=== PATIENT | female | born 2005 | race Caucasian/White ===

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

== ENCOUNTER 2024-01-10 12:47 | Emergency (ER) | payer BC, SELFPAY ==
--- NOTE | 2024-01-10 13:12 | ED.HA ---
HPI - Headache General Chief Complaint: Head Injury Stated Complaint: concussion? Time Seen by Provider: 01/10/24 13:16 Mode of arrival: ambulatory Limitations: no limitations History of Present Illness HPI Narrative: 18-year-old female presents with concern for headache. Reports she was drinking vodka last night, she fell onto her knees and then onto her face on a concrete surface. Reports abrasions on her face. She reports she had an episode of vomiting this morning. She reports she does not have recollection of the night or the injury due to drinking. Her friends recall the events to her. Her friends stay she did not lose consciousness at the time. Reports she was quiet after she fell. MD elicited complaint: headache Related Data Home Medications Medication Instructions Recorded Confirmed methylphenidate HCl 27 mg mg PO 01/10/24 tablet,extended release 24 hr Allergies Allergy/AdvReac Type Severity Reaction Status Date / Time No Known Allergies Allergy Verified 01/10/24 13:13 Review of Systems Review of Systems: CONSTITUTIONAL: Denies malaise, chills, sweats, or fever. EYES: Denies visual changes ENT: Denies rhinorrhea RESPIRATORY: Denies cough or dyspnea. GASTROINTESTINAL: Reports mild nausea. Reports 1 episode of vomiting SKIN: Reports abrasions to the face MUSCULOSKELETAL: Denies musculoskeletal pain NEUROLOGIC: Denies numbness, weakness. Reports headache. All systems reviewed & are unremarkable except as noted in HPI and below PMFSH Past Medical History Medical History (Updated 01/10/24 @ 13:33 by Chloé Pabon NP) ADHD Social History Social History Smoking status: Never smoker Comments At time of signature, agree with nursing past medical, surgical, social and family history. There is no relevant family history pertinent to the presenting complaint Exam Narrative: GENERAL: Well-appearing, well-nourished, and in no acute distress. HEAD: Normocephalic, atraumatic. EYES: PERRLA, sclera clear, and EOMI. No nystagmus. ENT: Nares clear, turbinates pink, no rhinorrhea or epistaxis. Mucous membranes moist. NECK: Supple. CHEST: No respiratory distress. Clear to auscultation. No bony deformities, no asymmetry. Speaks in full sentences. HEART: Regular rate and rhythm. No murmur heard. EXTREMITIES: Normal range of motion. No edema. Normal strength and sensation. SKIN: Warm, dry, no visible rash. Superficial abrasions noted to the right forehead and around the right eye NEURO: Alert and oriented x3. No focal deficits. Cranial nerves II through XII grossly intact PSYCH: Normal mood and affect Course Course Emergency Course: Anticipatory guidance given. Patient agrees to follow-up as directed and is aware of reasons to seek care at the emergency department. Portions of this record may have been created with voice recognition software Level of Care: Express Care Visit Vital Signs Vital signs: Reviewed. MDM - Headache MDM Narrative Medical decision making narrative: CCHR score: Signs of open or depressed skull fracture: No Guzman sign/raccoon eyes: No 2 or more episodes of vomiting: No Age 65 years +: No Amnesia for events occurring 30 minutes prior to trauma: Unknown Dangerous mechanism of injury (pedestrian struck by motor vehicle, occupant ejected from motor vehicle, fall from >3 feet or >5 stairs): No Because of the patient's intoxicated state comprehensive evaluation is not possible. I advised the patient that I cannot rule out high risk of head injury/head bleed without a CT scan. Patient is refusing to go to the emergency room at this time. I advised her signs and symptoms to watch for and advised her to go to the emergency room if she notices any worsening of her condition Differential Diagnosis Differential diagnosis: Likely subarachnoid hemorrhage, headache and postconcussion syndrome Critical Care T
[2024-01-10 13:13] VITALS: BP 129/74; PULSE 82; RESP 16; TEMP 37.2; O2SAT 100
== END 2024-01-10 13:39 | disposition home or self-care (01) ==
PROVIDERS: Emergency Provider Nurse Practitioner
DX: S09.90XA Unspecified injury of head, initial encounter (principal); W19.XXXA Unspecified fall, initial encounter
CPT/HCPCS: 99213; G0463

== ENCOUNTER 2024-01-12 10:48 | Emergency (ER) | payer BC, SELFPAY ==
--- NOTE | ~2024-01-12 | CT_ITS ---
EXAMINATION: CT brain wo con DATE: 01/12/2024 12:34 INDICATION: Head injury. Loss of consciousness. TECHNIQUE: Computed tomography (CT) of the head was performed without intravenous contrast. The mA wa s adjusted according to patient size. Iterative reconstruction technique was employed. The dose-lengt h product was 529.67 mGy-cm. COMPARISON: None FINDINGS: There is no intracranial hemorrhage, acute infarction, or abnormal intracranial mass lesion . There is a dystrophic calcification in right frontal lobe. The ventricles are normal in size. The p aranasal sinuses are clear. The mastoid air cells are normal. IMPRESSION: 1. Normal brain. Reviewed, dictated and finalized at location A. IMPRESSION: 1. Normal brain.
--- NOTE | ~2024-01-12 | CT_ITS ---
EXAMINATION: CT facial & cervical spine wo DATE: 01/12/2024 12:34 INDICATION: Head injury. TECHNIQUE: Computed tomography (CT) of the maxillofacial region and cervical spine was performed with out intravenous contrast. Automated exposure control and iterative reconstruction technique were empl oyed. The dose-length product was 447.76 mGy-cm. COMPARISON: None FINDINGS: MAXILLOFACIAL CT: There is leftward deviation of the nasal septum. No fracture. There is minimal mucosal thickening in the paranasal sinuses. CERVICAL SPINE CT: There is mild kyphosis of cervical spine. Vertebral body heights and intervertebral disc heights are normal. At C7-T1, there is mild right facet joint osteoarthritis. No neural foraminal stenosis or katie tral canal stenosis. IMPRESSION: 1. No fracture. Reviewed, dictated and finalized at location A. IMPRESSION: 1. No fracture.
[2024-01-12 10:56] VITALS: BP 114/61; PULSE 64; RESP 15; TEMP 36.5; O2SAT 100
--- NOTE | 2024-01-12 12:27 | ED.HEATRA ---
HPI - Head Injury General Chief complaint: Head Injury Stated complaint: head injury Time Seen by Provider: 01/12/24 11:51 Source: patient Mode of arrival: ambulatory Limitations: no limitations History of Present Illness HPI Narrative: Pt is a 18-year-old female who presents to the ER after sustaining a fall on Friday night. She reports she had been drinking alcohol that night. Pt reports she fell to her knees, then fell forward and face planted. She endorses +LOC and reports she didn't wake back up until the next morning. Pt reports her friends told her she was bleeding from her nose. She endorses nausea, vomiting x 2, ocular pain with eye movement, and sensitivity to light. Pt denies shortness of breath, chest pain, or numbness/tingling in her extremities. Related Data Home Medications Medication Instructions Recorded Confirmed methylphenidate HCl 27 mg mg PO 01/10/24 tablet,extended release 24 hr Allergies Allergy/AdvReac Type Severity Reaction Status Date / Time No Known Allergies Allergy Verified 01/12/24 10:59 [facility] Past Medical History Medical History (Updated 01/12/24 @ 14:42 by Ida Hauser APRN) ADHD Social History Social History Smoking status: Never smoker Course Vital Signs Vital signs: Vital Signs Temperature 36.5 C 01/12/24 10:56 Pulse Rate 64 01/12/24 10:56 Respiratory Rate 15 01/12/24 10:56 Blood Pressure 114/61 01/12/24 10:56 Pulse Oximetry 100 01/12/24 10:56 Oxygen Delivery Room Air 01/12/24 10:56 Temperature 36.5 C 01/12/24 10:56 Pulse Rate 64 01/12/24 10:56 Respiratory Rate 15 01/12/24 10:56 Blood Pressure 114/61 01/12/24 10:56 Pulse Oximetry 100 01/12/24 10:56 Oxygen Delivery Room Air 01/12/24 10:56 MDM - Head Injury MDM Narrative Medical decision making narrative: Pt is a 18-year-old female who presents to the ER after sustaining a fall on Friday night. She reports she had been drinking alcohol that night. Pt reports she fell to her knees, then fell forward and face planted. She endorses +LOC and reports she didn't wake back up until the next morning. Pt reports her friends told her she was bleeding from her nose. She endorses nausea, vomiting x 2, ocular pain with eye movement, and sensitivity to light. Pt denies shortness of breath, chest pain, or numbness/tingling in her extremities. Upon examination, pt has healing superficial wounds in multiple places on her face. The rest of her exam is unremarkable. Neuro exam is WNL. CT head and CT facial bones/cervical/spine were WNL. CT spine results endorsed mild kyphosis of cervical spine. Vertebral body heights and intervertebral disc heights are normal. At C7-T1, there is mild right facet joint osteoarthritis. No neural foraminal stenosis or central canal stenosis. CT head results reported no intracranial hemorrhage, acute infarction, or abnormal intracranial mass lesion. There is a dystrophic calcification in right frontal lobe. The ventricles are normal in size. The paranasal sinuses are clear. The mastoid air cells are normal. LETTER SORTING MACHINE OPERATOR explained results of CT scans to pt. Pt verbalized understanding. Pt advised to use caution when she drinks alcohol. Pt may take Tylenol as needed for a headache. Reasons for returning to the ER were discussed and pt verbalized understanding. Differential Diagnosis Differential diagnosis: Likely closed head injury, subarachnoid hematoma, postconcussion syndrome and subdural hematoma Lab Data Attestation: I reviewed the patient's lab results. Imaging Data Attestation: I personally reviewed and interpreted this imaging study as follows: Radiologist's impression: Impressions Head CT 01/12/24 12:36 IMPRESSION: 1. Normal brain. Head/Cervical Spine/Facial Bones CT 01/12/24 12:37 IMPRESSION: 1. No fracture. Discharge Plan Discharge Clinical Impression: Postconcussion syndrome Patient Disposition: Home, Self-Care Condition: Stable Instructions: Antibiotic Form, Concussion (ED), Post Concussion Syndrome (ED) Additional Instructions: Please take caution when you drink alcohol. Make sure you and your friends are seeking additional help when someone loses consciousness or hits their head while drinking alcohol. You may take Tylenol as needed for a headache. If you develop the worst headache of your life, experience severe dizziness, have altered mental status, or continue to vomit, please return to the ER. Prescriptions: No Action methylphenidate HCl 27 mg tablet extended release 24hr PO Follow-up/Referrals: Chidi Lehman MD [Physician] - (Primary Care) UNKNOWN,DOCTOR [Primary Care Provider] - Stand Alone Forms: Work/School Release IP Time of Disposition: 14:41
== END 2024-01-12 14:45 | disposition home or self-care (01) ==
PROVIDERS: Emergency Provider Registered Nurse
DX: S09.90XA Unspecified injury of head, initial encounter (principal); F07.81 Postconcussional syndrome; F90.9 Attention-deficit hyperactivity disorder, unspecified type; W18.30XA Fall on same level, unspecified, initial encounter
CPT/HCPCS: 70450; 70486; 72125; 99284

== ENCOUNTER 2024-03-08 08:31 | Emergency (ER) | payer BC, SELFPAY ==
[2024-03-08 08:37] VITALS: BP 118/53; PULSE 76; RESP 16; TEMP 36.5; O2SAT 100
--- NOTE | 2024-03-08 08:41 | ED.URI ---
HPI - URI/Sore Throat General Chief Complaint: Upper Respiratory Infection Stated Complaint: sore throat / body aches Time Seen by Provider: 03/08/24 08:56 Source: patient, RN notes reviewed and old records reviewed Mode of arrival: ambulatory Limitations: no limitations History of Present Illness HPI Narrative: patient presents with complaints of 3-4 days of runny nose, sore throat, cough. She denies any fever, chills, sweats. She has not been taking anything for her symptoms. She is not in any distress. She voices no concerns or complaints at this time. Related Data Home Medications Medication Instructions Recorded Confirmed methylphenidate HCl 27 mg 27 mg PO DAILY 01/10/24 tablet,extended release 24 hr Allergies Allergy/AdvReac Type Severity Reaction Status Date / Time No Known Allergies Allergy Verified 03/08/24 08:46 Review of Systems Review of Systems: All systems reviewed & are unremarkable except as noted in HPI and below Constitutional: Constitutional: Reports no additional constitutional complaints ENT: Reports system reviewed and no additional complaints, except as documented, Reports as per HPI, Reports nasal congestion, Reports nasal discharge, Reports post nasal drip and Reports sore throat Cardiovascular: Cardiovascular: Reports no additional cardiovascular complaints Respiratory: Respiratory: Reports no additional respiratory complaints and Reports cough Gastrointestinal: Gastrointestinal: Reports no additional gastrointestinal complaints [facility] Past Medical History Medical History (Updated 03/08/24 @ 09:11 by Marycarmen Santana APRN) ADHD Social History Social History Smoking status: Never smoker Comments At the time of my signature, I reviewed and agree with the nursing past medical, surgical, social, and family history. There is no relevant family history pertinent to the patient complaint. Exam Const: General: cooperative, no acute distress, alert and awake Orientation/consciousness: oriented to person, oriented to place and oriented to time HENMT: Head: normal to inspection Ears: TM's normal bilaterally Face/Nose/Sinus: Nasal discharge present clear Mouth: Yes moist mucous membranes Throat: posterior oropharynx abnormal erythema and postnasal drainage Resp: Effort & Inspection: normal respiratory effort and able to speak in complete sentences Auscultation: clear to auscultation bilaterally, no crackles, no rales, no rhonchi and no wheezes Cardio: Palpation: normal PMI Rate: regular rate Rhythm: regular rhythm Heart sounds: S1 normal heart sound present and S2 normal heart sound present Neuro: General: oriented to person, oriented to place and oriented to time Cranial nerves: Yes CN's II-XII intact bilaterally Psych: Appearance: grossly normal Thought process: Normal thought process present Insight: Good insight present (Psych) Judgement: Good judgement present (Psych) Course Course Level of Care: Express Care Visit Vital Signs Vital signs: Reviewed MDM - URI/Sore Throat MDM Narrative Medical decision making narrative: Patient in no distress, nontoxic appearing. Negative COVID, negative flu, negative strep. Culture pending. Patient with URI, supportive care discussed. Follow with primary care provider. Emergency department for new or worse symptoms. Discharge instructions reviewed with patient, as well as provided in writing per nursing staff. The instructions also include specific and strict return/GO TO THE ER as well as f/u information. All questions have been answered, and the patient deny any further questions with discharge and discharge plan. Some parts of this dictation were generated by voice recognition software and may contain typographical and/or grammatical inaccuracies. Differential Diagnosis Differential diagnosis: Likely upper respiratory infection, otitis media, viral infectio
[2024-03-08 09:05] LABS: EDCOVIDSCREEN Negative (Negative); EDINFLUASCREEN Negative (Negative); EDINFLUBSCREEN Negative (Negative); EDSTREPNEGPOS1 Negative (Negative)
== END 2024-03-08 09:16 | disposition home or self-care (01) ==
PROVIDERS: Emergency Provider Nurse Practitioner Family; PCP Pediatrics
DX: J06.9 Acute upper respiratory infection, unspecified (principal); Z20.822 Contact with and (suspected) exposure to COVID-19
CPT/HCPCS: 87081; 87426; 87804; 87880; 99213; G0463

== ENCOUNTER 2024-09-30 12:48 | Emergency (ER) | payer BC, SELFPAY ==
--- NOTE | 2024-09-30 12:50 | ED.URI ---
HPI - URI/Sore Throat General Chief Complaint: Upper Respiratory Infection Stated Complaint: Flu Like Time Seen by Provider: 09/30/24 12:50 Source: patient Mode of arrival: ambulatory Limitations: no limitations History of Present Illness HPI Narrative: Tatum is a 18-year-old female patient presenting to the clinic today with complaints of dental infection, fever, nasal congestion, sore throat, and body aches. She reports symptoms started about 3-4 days ago. Temperature was a 100? F in the clinic today and heart rates 120s. She denies any shortness of breath or chest pain. Does report pus coming out of her bottom incisor teeth/gums. Last menstrual period was last month. Denies any concern for . MD elicited complaint: sore throat and nasal congestion Related Data Home Medications ?Medication ?Instructions ?Recorded ?Confirmed ?Last Taken ?Type methylphenidate HCl 27 mg 27 mg PO DAILY 01/10/24 Unknown History tablet,extended release 24 hr Allergies Allergy/AdvReac Type Severity Reaction Status Date / Time No Known Allergies Allergy Verified 09/30/24 12:58 Review of Systems Review of Systems: Pertinent positives per HPI. Patient denies any fever, chills, rash, headache, visual changes, dizziness, cough, shortness of breath, chest pain, palpitations, nausea, vomiting, diarrhea, constipation, abdominal pain, or any urinary issues. PMFSH Past Medical History Medical History (Updated 09/30/24 @ 13:01 by Erlin Barry APRN) ADHD Social History Social History Smoking status: Never smoker Comments At the time of my signature, I reviewed and agree with the nursing past medical, surgical, social, and family history. There is no relevant family history pertinent to the patient complaint. Exam Narrative: General: Well-developed, well nourished, in no apparent distress Head: Normocephalic, atraumatic Eyes: Pupils equally round and reactive to light bilaterally, EOM intact, sclera and conjunctive clear, no discharge, lids normal Ears: TMs intact and clear, ear canals clear, no drainage, grossly hearing normal. Nose: Nares patent, clear nasal discharge, mild inflammation, no sinus tenderness. Mouth: Oral pharynx without lesions or masses, poor dentition, lower mid dental/gingival infection, MMM. Neck: Supple, trachea midline, no enlargement of anterior or posterior cervical nodes, no thyroid masses or goiter palpable. Cardio: Regular rate and rhythm, s1 and s2 normal, no murmur appreciated. Resp: Clear to auscultation bilaterally, no rhonchi, rales, wheezing or rubs Course Course Emergency Course: Portions of this record may have been created with voice recognition software. Level of Care: Express Care Visit Vital Signs Vital signs: Vital Signs Temperature 37.7 C H 09/30/24 12:54 Pulse Rate 121 H 09/30/24 12:54 Respiratory Rate 18 09/30/24 12:54 Blood Pressure 107/70 09/30/24 12:54 Pulse Oximetry 100 09/30/24 12:54 Oxygen Delivery Room Air 09/30/24 12:54 Temperature 37.7 C H 09/30/24 12:54 Pulse Rate 121 H 09/30/24 12:54 Respiratory Rate 18 09/30/24 12:54 Blood Pressure 107/70 09/30/24 12:54 Pulse Oximetry 100 09/30/24 12:54 Oxygen Delivery Room Air 09/30/24 12:54 Vital signs reviewed MDM - URI/Sore Throat MDM Narrative Medical decision making narrative: At the time of visit patient is resting comfortably on the exam table. Patient appears to be nontoxic. Plan: I suspect patient has URI with pharyngitis and dental infection. Prescription for amoxicillin was sent to the pharmacy. Patient was instructed to follow-up with her dentist as soon as possible. Supportive measures were discussed with the patient and they voiced understanding discharge instructions and agrees to treatment plan. Return precautions reviewed Differential Diagnosis Differential diagnosis: Likely upper respiratory infection, otitis media, sinusitis, viral infection, bronchitis, influenza, pharyngitis and other (COVID) Discharge Plan Discharge Clinical Impression: Dental infection Pharyngitis Qualifiers: Pharyngitis/tonsillitis etiology: unspecified etiology Qualified Code(s): J02.9 - Acute pharyngitis, unspecified URI (upper respiratory infection) Qualifiers: URI type: unspecified URI Qualified Code(s): J06.9 - Acute upper respiratory infection, unspecified Patient Disposition: Home Condition: Stable Instructions: Antibiotic Form, Pharyngitis (ED), Cold Symptoms (ED), Toothache (ED) Additional Instructions: Take prescription medications only as prescribed-amoxicillin May take DayQuil/NyQuil for cold/flu symptoms Increase fluids and stay well hydrated Tylenol/motrin for pain/fever Flonase and OTC antihistamines as directed Vicks vapor rub to open sinuses Sinus rinses for congestion Cepacol spray, cough drops, throat lozenges, warm tea with honey/lemon, gargle salt water to soothe throat BRAT diet for diarrhea Clear liquids x 24 hours then advance as tolerated for nausea/vomiting Go to the ED if you develop a worsening in your condition- high fever not controlled by Tylenol or Motrin, dehydration, weakness, lethargy, shortness of breath, or chest pain. Follow up with your PCP in 3-5 days if symptoms persist. Follow-up with your dentist as soon as possible Patient Language: Swazi Prescriptions: New amoxicillin 875 mg tablet 875 mg PO Q12H 10 Days Qty: 20 0RF No Action methylphenidate HCl 27 mg tablet extended release 24hr 27 mg PO DAILY Follow-up/Referrals: PHYSICIAN,AUTOMATIC SHIRRING MACHINE OPERATOR [Primary Care Provider] - Time of Disposition: 13:00 Quality NIHSS Nursing Documentation ED NIHSS nursing documentation: reviewed/agree
--- OUTSIDE RECORDS SUMMARY | 2024-09-30 12:51 | XMS_ITS | Clinical Summary ---
Author Organization [facility] Address [address] [place] [id number] Care Team Providers Care Talent Acquisition Operations Manager Name Role Phone None, Provider MD Primary Care Provider Unavaila ble Allergies No known active allergies Active Problems No known active problems Social History Tobacco Use Types Packs/Day Years Used Date Smoking Tobacco: Never Smokeless Tobacco: Never Comments No Sex and Gender Information Value Date Recorded Sex Assigned at Not on file Legal Sex Female 7:17 PM CDT Gender Identity Not on file Sexual Orientation Not on file Last Filed Vital Signs Vital Sign Reading Time Taken Comments Blood Pressure 102/70 11/16/2020 10:07 AM CDT Pulse 92 11/16/2020 10:07 AM CDT Temperature 36.9 C (98.5 F) 11/16/2020 10:07 AM CDT Respiratory Rate - - Oxygen Saturation 99% 11/16/2020 10:07 AM CDT Inhaled Oxygen Concentration - - Weight 76.7 kg (169 lb) 11/16/2020 10:07 AM CDT Height 172 cm (5' 7.72 ) 11/16/2020 10:07 AM CDT Body Mass Index 25.91 11/16/2020 10:07 AM CDT Body Mass Index Percentile 89.45% 11/16/2020 10: 07 AM CDT Growth Chart: [facility] (Girls, 2- 20 Years) Plan of Treatment Health Maintenance Due Date Last Done Comments Annual Physical 11/14/2007 HPV Vaccines (1 - 3-dose series) 11/14/2019 Meningococcal B Vaccine (1 o f 2 - Standard) 2020 Hepatitis C 2022 DTaP, Tdap and Td Vaccines ( 1 - Tdap) 11/14/2023 Hepatitis B Vaccines (1 of 3 - 19+ 3-dose series) 11/14/2023 COVID-19 Vaccine ( - 2023-2 5 season) 2024 Meningococcal Vaccine Aged Out No simon alison eligible based on patient's age to complete this topic Pneumococcal Vaccine: Pediat rics (0 to 5 Years) and At-Risk Patients (6 to 49 Years) Aged Out No longer eligible b ased on patient's age to complete this topic RSV Immunizations Under 20 Months Aged Out No longer eligible based on patient's age to complete this topic Insurance [facility] Care Teams Talent Acquisition Operations Manager Relationship Specialty Start Date End Date None, Provider, PCP - General 03/15/20
--- OUTSIDE RECORDS SUMMARY | 2024-09-30 12:51 | XMS_ITS | Data Portability ---
Author Organization [facility] [place] Address [address] [place] [address] Care Team Providers Care Community Relations Coordinator Name Role Phone MARISSA SCOTT Primary Care Provider [phone] Assessment Encounter Date Assessment Date Assessment LastModified by Organization Details LastModified Time 09/22/2020 09/22/2020 Has not had HPV vaccine- discussed and encouraged Recommended CBC, TSH, PCOS labs. PT declines due to fear of needles. Discussed PCOS briefly. If periods still irregular off OCP in a few years, should do labs then Discussed expectant mgt vs OCP. Pt desires OCP. Discussed the usage, side effects, risks, and benefits of OCP use. Questions answered. Prescription given for microgestin. She will start OCP with next menses and follow up for a med check in 4 mos. If menses not starting in one month, will call for provera. [email or web address] Not available 09/22/2020 15:11:50 01/19/2021 01/19/2021 Doing well on OCP Prescription refilled Questions answered discussed and reassured re amenorrhea with OCP use. FU for WWE in September [email or web address] Not available 01/19/2021 16:05:00 08/26/2023 08/26/2023 Annual gynecological exam performed. Patient will come back in a year unless there are new symptoms. [email or web address] Not available 08/26/2023 15:58:12 Plan of Treatment Reminders Order Date Submit Date Provider Last Modified By Organization Details Last Modified Time Details Appointments None recorded. Lab None recorded. Referral None recorded. Procedures None recorded. Surgeries None recorded. Imaging None recorded. Medication Orders Blisovi Fe 06/14 (28) 1 mg-20 mcg (21)/75 mg (7) tablet 2023 024 [facility] #[id number], [address], [place], [id number], 4 16:47:11 Aurovela Fe 1-20 (28) 1 mg-20 mcg (21)/75 mg (7) tablet 2020 021 [facility] #10896, [address], [place], [id number], 1 16:05:09 Microgestin FE 1/20 (28) 1 mg-20 mcg (21)/75 mg (7) tablet 2020 021 [facility] #81234, [address], [place], [id number], 1 15:09:07 Patient TargetsNo targets recorded. Patient InstructionsNo instructions recorded. Reason for Referral None Reported. Medical Equipment None Reported. Allergies No known drug allergies Medications Name Sig Start Date Stop Date Status Note LastModified by Organization Details LastModified Time methylphenid ate ER 54 mg tablet,exten ded release 24 hr TK 1 T PO IN THE MORNING active Not Available Not Available No t Available methylphenid ate ER 36 mg tablet,exten ded release 24 hr TAKE 1 TABLET BY MOUTH IN THE MORNING 08/24 completed Not Available Not Available Not Available Blisovi Fe 1/20 (28) 1 mg-20 mcg (21)/75 mg (7) tablet TAKE 1 TABLET BY MOUTH EVERY DAY active Not Available Not Available No t Available Vitals Date Recorded Body height Body mass index (BMI) [Percentile] Per age and sex Body mass index (BMI) Body weight Systolic blood pressure Diastolic blood pressure Provider Name and Address Organization Details Last Updated DateTime 1 165.1 cm 94 % 28.3 kg/m2 01363.7 g 115 mm[Hg] 69 mm[Hg] Thuy Trinidad [facility] 1 14:25:23 Date Recorded Body weight Body mass index (BMI) [Percentile] Per age and sex Body mass index (BMI) Body height Systolic blood pressure Diastolic blood pressure Provider Name and Address Organization Details Last Updated DateTime 1 02039.5 2 g 94 % 28 kg/m2 165.1 cm 125 mm[Hg] 80 mm[Hg] Thuy Trinidad [facility] 1 15:52:54 Date Recorded Body height Body mass index (BMI) [Percentile] Per age and sex Body mass index (BMI) Body weight Systolic blood pressure Diastolic blood pressure Provider Name and Address Organization Details Last Updated DateTime 4 165.1 cm 91 % 28 kg/m2 71219.5 2 g 102 mm[Hg] 77 mm[Hg] Sonya Max [facility] 4 15:31:44 Social History Question Answer Notes LastModified by Organizat ion Details LastModified Time Do You Have An Advance Directive? No Information n ot available 08/25/2023 What Is Your Level Of Alcohol Consumption? None Information not available 08/26/2023 Are You Blind Or Do You Have Difficulty Seeing? No Information not available 08/25/2023 What Is Your Level Of Caffeine Consumption? Moderate Information not available 08/25/2023 How Much Tobacco Do You Chew? None Information not available 08/26/2023 In The 14 Days Before Symptom Onset, Have You Had Close Contact With A Laboratory-confirme d COVID-19 While That Case Was Ill? No Information n ot available 08/25/2023 In The 14 Days Before Symptom Onset, Have You Had Close Contact With A Person Who Is Under Investigation For COVID-19 While That Person Was Ill? No Information not available 08/25/2023 Have You Been To An Area Known To Be High Risk For COVID-19? No Information not available 08/25/2023 Are You Deaf Or Do You Have Serious Difficulty Hearing? No Information not available 08/25/2023 What Type Of Diet Are You Following? REGULAR Information n ot available 08/25/2023 What Is The Highest Grade Or Level Of School You Have Completed Or The Highest Degree You Have Received? [id number] Information not available 08/26/2023 What Is Your Occupation? Student Information not available 08/25/2023 Are There Any Guns Present In Your Home? No Information not available 08/25/2023 Do You Use Your Seat Belt Or Car Seat Routinely? Yes Information not available 08/25/2023 Do You Have Smoke And Carbon Monoxide Detectors In Your Home? Yes Information not available 08/25/2023 How Much Tobacco Do You Smoke? No Information not available 08/26/2023 Do You Feel Stressed (tense, Restless, Nervous, Or Anxious, Or Unable To Sleep At Night)? [id number] Information not available 08/25/2023 Do You Use Any Illicit Or Recreational Drugs? No Information not available 08/25/2023 Do You Use Sunscreen Routinely? Yes Information not available 08/25/2023 Have You Used IV Drugs? No Information not available 08/25/2023 Sex: Unknown Functional Status Question Answer Note LastModified by Organizat ion Details LastModified Time Are you able to walk? YESWOREST Information not available 08/25/2023 What is your exercise level? Occasional Information not available 08/25/2023 Mental Status None recorded. Family History Relationship Description Onset Age of this Age Resolved Age Notes LastModified by Organization Details LastModified Time Paternal Grandfather Carcinoma in situ of colon [email or web address] Not available 2020 14:25:54 Maternal Grandmother Carcinoma in situ of ovary [email or web address] Not available 2020 14:26:18 Maternal Grandfather Carcinoma of prostate [email or web address] Not available 2020 14:26:34 Medical History Condition Response Allergies (Food, seasonal, environmental ) N Other N Breast Cancer N Drug/Latex Allergies/Reactions N Blood Transfusion N Dermatologic Disorders N Lung Disease N Defects or Inherited Disease N Breast Problem N Gestational Diabetes N Hematologic disorders N Anesthesia Complications N History of STI N Deep Vein Thrombosis N Polycystic ovary syndrome N Anxiety Disorder N Autoimmune disease N Arthritis N Infertility N Polyps N Acid Reflux (GERD) N History of abnormal pap N Cancer N Stroke N Varicosities N Neurologic/Epilepsy N Endometriosis N High Cholesterol N Headaches N Fibromyalgia N Kidney Disease N Heart Problems N Kidney or Bladder Problems N Thyroid Problems N GI Problems N Eating Disorder N Anemia N Art (IVF or FET) N Psychiatric Illness N Ovarian Cancer N Diabetes N Pulmonary (TB, Asthma) N Hepatitis/Liver Disease N No Past Medical History N Eczema N Urinary Tract Infection N Abuse/Domestic Violence N Asthma N Trauma/Violence N Depression/ depression N Heart Disease N Pre-Eclampsia N Hypertension N Osteoporosis N Thrombophilias N Gynecological History Statement/Question Response Date of LMP Frequency of Cycle (Q days) 7 Sexually Active? N On BCP's at Conception? Y N STIs/STDs N Age of first menstrual cycle 11 HPV Vaccine Y Sexual Problems? N Current Control Method BCPs N Obstetrics History GPAL:G 0 P 0 0 0 0 Past Encounters Encounter ID Performer Location Encounter Start Date Encounter Closed Date Diagnosis/Indication Diagnosis SNOMED-CT Code Diagnosis ICD10 Code Diagnosis Note [id number] Concetta Wise MD [place] [address],[facility] [place] [address] 09/22/2020 14:17:11 09/22/2020 15:16:12 Menometrorrhagia 829114881 N92.1 Vaccination not done 088 2558327 9108 Z28.9 Overweight in childhood 255513859 Z68.53 Initial pr escription of oral contraception done 3942096843 94592 Z30.011 [id number] Concetta Wise MD [place] [address] [address] 01/19/2021 15:46:52 01/21/2021 22:54:59 Menometrorrhagia 265651583 N92.1 Surveillan ce of oral contraception 778373726 Z30.41 [id number] JOSEFINA Hargrove [place] [address] [address] 08/26/2023 15:26:15 08/26/2023 16:03:30 Gynecologic examination 20452204 Z01.419 WWEdecline d STI screenpap at [address] [place] [address] ed annual exam with PCPRTC in 1 yr or sooner if needed Take Calcium with Vitamin D daily if not receiving in daily diet. It is strongly advised to have an annual flu shot and up can obtain at most pharmacies . If you have not had a TDap shot in the last 10 years you should obtain one as well. Discussed with patient & provided with informatio n regarding Gardisil vaccine to prevent the 4 strains for HPV that cause cervical cancer. Encourage safe sexual practices, to use condoms and limit partners if not already in a monogamous relationsh ip. Do monthly self breast exams. BRCA testing is now available for patients with strong genetic history of female cancer. If interested contact the office. Engage in regular exercise. Avoid tobacco, illicit drugs, and alcohol. This lifestyle behavior pattern will lead to less health conditions and longer life span. If BMI greater than 25 dietary consult advised. Pap smear is not recommende d prior to the age of 21. If you have any concerns, pelvic, or vaginal problems we can discuss testing. Patient received above instructio ns, and questions have been answered. If you have any questions please call or respond to this email. Patient was made aware of the patient portal and may obtain a paper copy of today's plan if desired. [facility] 787119239 Z30.9 desires to restart OCPrefills sent x 12 monthsr/b/ a reviewed Surveillan ce of oral contraception 184411899 Z30.41 Health Concerns Section Related Observation LastModified by Organization Detai ls LastModified Time None Recorded Concern Status LastModified by Organization Details LastModified Time None Recorded Advance Directives Directive N: Payers Encounter Date Sequence Insurance Name Policy Number Policy Faria Covered Member ID Faria Member ID Guarantor Name 09/22/2020 1 [place] 112 Valerio Sam [id number] Valerio Sam 01/19/2021 1 [place] 112 Valerio Sam [id number] Valerio Sam 08/26/2023 1 [facility] 112 Valerio Sam [id number] Valerio Sam Notes Date Note Type Note Provider Name and Address Organization Details Recorded Time 09/22/2020 text/html Patient is a 14y o G0 who presents for irregular periods. She has never been sexually active. menarche age 12, not quite 2 years ago. Always irregular from 2 weeks to 4 mos apart. Several times longer than 10 days. In jun of this year bled for 3 weeks straight, then off a week, then bled again. Concerns: HPV vaccine: no, afraid of vaccines Depression: denies, has some anxiety Domestic violence:denies exercise:yes Concetta Wise MD [address], [place], [address], [facility] 09/22/2020 15:12:09 01/19/2021 text/html Pt is a 15yo G0 who presents for follow up OCP start in September for menometrorrhagia.. She reports no side effects and doing well except had a period the first month and not since. Some missed pills, but getting better. Declined labs. Concetta Wise MD [address], [place], [address], [facility] 01/19/2021 16:05:13 08/26/2023 text/html Annual GYNReport ed bypatient.Menstrual cycle:Normal menses Urinary symptoms:No hematuria; No incontinence Vulva:No genital lesion Vagina:Normal vaginal discharge Breast:No breast pain; No breast lump; No nipple discharge Current Contraception:Satisf ied with current contraception; Oral contraceptives Sexual complaints:No sexual complaints; No pain during intercourse; Normal libido Menopausal Symptoms:No menopausal symptoms; Normal vaginal lubrication Psychological symptoms:No depression; No anxiety; No PMDD Preventive measures:Encourage self breast examination; Encourage regular exercise; Encourage no tobacco use; Encourage regular mammograms starting age 40Notes:17yo [id number] OCP in November, ran out of refillswants to restartdenies h/o DVT/PE, HTN, Stroke/IA, cancer, liver disease, or migraine with aura JOSEFINA Hargrove [address], [place], [address], [facility] 08/26/2023 16:00:50 OBGyn Episode No OBEpisode recorded.
--- OUTSIDE RECORDS SUMMARY | 2024-09-30 12:51 | XMS_ITS | Encounter Summary ---
Author Organization [facility] Address [address] [place] [address] Care Team Providers Care Child Welfare Manager Name Role Phone None, Provider Primary Care Provider Lindy powell Encounter Details Date Type Department Care Team (Late st Contact Info) Description 11/16/2020 [employer] [facility] [employer] Message Enc [facility] [address] [place] [address] Mya Carver, PREMA [address] [place] [address] Visit Follow Up Social History Tobacco Use Types Packs/Day Years Used Date Smoking Tobacco: Never Smokeless Tobacco: Never Comments No Sex and Gender Information Value Date Recorded Sex Assigned at Not on file Legal Sex Female 7:17 PM CDT Gender Identity Not on file Sexual Orientation Not on file COVID-19 Exposure Response Date Recorded In the last month, have you been in contact with someone who was confirmed or suspected to have Coronavirus / COVID-19? No / Unsure 11/16/2020 9:36 AM CDT documented as of this encounter Plan of Treatment Not on file documented as of this encounter Visit Diagnoses Not on filedocumented in this encounter Care Teams Child Welfare Manager Relationship Specialty Start Date End Date None, Provider, PCP - General 03/15/20 documented as of this encounter
[2024-09-30 12:54] VITALS: BP 107/70; PULSE 121; RESP 18; TEMP 37.7; O2SAT 100
== END 2024-09-30 13:10 | disposition home or self-care (01) ==
PROVIDERS: Emergency Provider Nurse Practitioner Family
DX: K04.7 Periapical abscess without sinus (principal); J02.9 Acute pharyngitis, unspecified; J06.9 Acute upper respiratory infection, unspecified
CPT/HCPCS: 99213; G0463

== ENCOUNTER 2024-10-02 07:36 | Emergency (ER) | payer BC, SELFPAY ==
--- OUTSIDE RECORDS SUMMARY | 2024-10-02 07:39 | XMS_ITS | Data Portability ---
Author Organization [facility] [place] Address [address] [place] [address] Care Team Providers Care Dot Net Developer Name Role Phone MARISSA SCOTT Primary Care Provider Assessment Encounter Date Assessment Date Assessment LastModified [...] in one month, will call for provera. [email or web address] Not available 09/22/2020 15:11:50 01/19/2021 01/19/2021 Doing well on OCP Prescription refilled Questions answered discussed and reassured re amenorrhea with OCP use. FU for WWE in September [email or web address] Not available 01/19/2021 16:05:00 08/26/2023 08/26/2023 Annual [...] mcg (21)/75 mg (7) tablet 2023 024 [facility] #31644, [address], [place], [id number], 4 16:47:11 Aurovela Fe 1-20 (28) 1 mg-20 mcg (21)/75 mg (7) tablet 2020 021 [facility] #03416, [address], [place], [id number], 1 16:05:09 Microgestin FE 1/20 (28) 1 mg-20 mcg (21)/75 mg (7) tablet 2020 021 [facility] #59793, [address], [place], [id number], 1 15:09:07 Patient TargetsNo targets recorded. Patient [...] 1 165.1 cm 94 % 28.3 kg/m2 57457.7 g 115 mm[Hg] 69 mm[Hg] Thuy Trinidad [facility] 1 14:25:23 Date Recorded Body weight Body mass index (BMI) [Percentile] Per age and sex Body mass index (BMI) Body height Systolic blood pressure Diastolic blood pressure Provider Name and Address Organization Details Last Updated DateTime 1 13629.5 2 g 94 % 28 kg/m2 165.1 cm 125 mm[Hg] 80 mm[Hg] Thuy Trinidad [facility] 1 15:52:54 Date Recorded Body height Body mass index (BMI) [Percentile] Per age and sex Body mass index (BMI) Body weight Systolic blood pressure Diastolic blood pressure Provider Name and Address Organization Details Last Updated DateTime 4 165.1 cm 91 % 28 kg/m2 07768.5 2 g 102 mm[Hg] 77 mm[Hg] Sonya Max [facility] 4 15:31:44 Social History Question Answer [...] Or The Highest Degree You Have Received? [id number] Information not available 08/26/2023 What Is Your [...] Anxious, Or Unable To Sleep At Night)? [id number] Information not available 08/25/2023 Do You Use [...] N Drug/Latex Allergies/Reactions N Blood Transfusion N Lung Disease N Dermatologic Disorders N Defects or Inherited Disease N Breast Problem N Gestational Diabetes N Hematologic disorders N Anesthesia Complications N History of STI N Deep Vein Thrombosis N Polycystic ovary syndrome N Anxiety Disorder N Autoimmune disease N Arthritis N Polyps N Infertility N History of abnormal pap N Acid Reflux (GERD) N Cancer N Varicosities N Stroke N Neurologic/Epilepsy N Endometriosis N High Cholesterol N Fibromyalgia N Headaches N Kidney Disease N Heart Problems N [...] SNOMED-CT Code Diagnosis ICD10 Code Diagnosis Note [id number] Concetta Wise MD [place] [address],[facility] [address] 09/22/2020 14:17:11 09/22/2020 15:16:12 Menometrorrhagia 665867945 N92.1 Vaccination not done 503 5126567 9108 Z28.9 Overweight in childhood 379956577 Z68.53 Initial pr escription of oral contraception done 7059139272 45274 Z30.011 [id number] Concetta Wise MD [place] [address] [address] 01/19/2021 15:46:52 01/21/2021 22:54:59 Menometrorrhagia 716146613 N92.1 Surveillan ce of oral contraception 728316782 Z30.41 [id number] JOSEFINA Hargrove [place] [address] [address] 08/26/2023 15:26:15 08/26/2023 16:03:30 Gynecologic examination 66208664 Z01.419 WWEdecline d STI screenpap at [address] [place] [address] ed annual exam with PCPRTC in 1 [...] paper copy of today's plan if desired. [facility] 325560229 Z30.9 desires to restart OCPrefills sent x 12 monthsr/b/ a reviewed Surveillan ce of oral contraception 424861935 Z30.41 Health Concerns Section Related Observation LastModified by Organization Detai ls LastModified Time None Recorded Concern Status LastModified by Organization Details LastModified Time None Recorded Advance Directives Directive N: Payers Encounter Date Sequence Insurance Name Policy Number Policy Faria Covered Member ID Faria Member ID Guarantor Name 09/22/2020 1 [place] 112 Valerio Sam [id number] Valerio Sam 01/19/2021 1 [place] 112 Valerio Sam [id number] Valerio Sam 08/26/2023 1 [facility] 112 Valerio Sam [id number] Valerio Sam Notes Date Note Type Note [...] exercise:yes Concetta Wise MD [address], [place], [address], [facility] 09/22/2020 15:12:09 01/19/2021 text/html Pt is a 15yo G0 who presents for follow up OCP start in September for menometrorrhagia.. She reports no side effects and doing well except had a period the first month and not since. Some missed pills, but getting better. Declined labs. Concetta Wise MD [address], [place], [address], [facility] 01/19/2021 16:05:13 08/26/2023 text/html Annual GYNReport [...] use; Encourage regular mammograms starting age 40Notes:17yo [id number] OCP in November, ran out of refillswants to restartdenies h/o DVT/PE, HTN, Stroke/MT, cancer, liver disease, or migraine with aura JOSEFINA Hargrove [address], [place], [address], [facility] 08/26/2023 16:00:50 OBGyn Episode No OBEpisode recorded.
--- OUTSIDE RECORDS SUMMARY | 2024-10-02 07:39 | XMS_ITS | Encounter Summary ---
Author Organization [facility] Address [address] [place] [address] Care Team Providers Care Building Services Engineer Name Role Phone None, Provider Primary Care Provider Lindy powell Encounter Details Date Type Department Care Team (Late st Contact Info) Description 11/16/2020 [employer] Message Enc [facility] [address] [place] [address] Mya Carver, PERMA [address] [place] [address] Visit Follow Up Social History Tobacco Use [...] on filedocumented in this encounter Care Teams Building Services Engineer Relationship Specialty Start Date End Date None, Provider, PCP - General 03/15/20 documented as of this encounter
--- OUTSIDE RECORDS SUMMARY | 2024-10-02 07:39 | XMS_ITS | Clinical Summary ---
Author Organization [facility] Address [address] [place] [address] Care Team Providers Care Bead Cutter Name Role Phone None, Provider MD Primary [...] 11/16/2020 10: 07 AM CDT Growth Chart: [facility] (Girls, 2- 20 Years) Plan of Treatment [...] patient's age to complete this topic Insurance [facility] Care Teams Bead Cutter Relationship Specialty Start Date End Date None, Provider, PCP - General 03/15/20
[2024-10-02 07:41] VITALS: BP 130/85; PULSE 110; RESP 15; TEMP 38.1; O2SAT 100
[2024-10-02 09:12] VITALS: BP 112/64; PULSE 107; RESP 15; TEMP 38.2; O2SAT 100
[2024-10-02] MEDS: IBUPROFEN 600 MG TABLET PO (09:21)
[2024-10-02] MEDS: ACETAMINOPHEN 500 MG TABLET 1000 MG PO (09:21)
[2024-10-02 10:10] VITALS: BP 107/49; PULSE 94; RESP 16; TEMP 37.4; O2SAT 98
--- OUTSIDE RECORDS SUMMARY | 2024-10-02 10:16 | XMS_ITS | Clinical Summary ---
Author Organization [facility] Address [address] [place] [address] Care Team Providers Care Residential Case Manager Name Role Phone None, Provider MD [...] 11/16/2020 10: 07 AM CDT Growth Chart: [facility] (Girls, 2- 20 Years) Plan of Treatment [...] patient's age to complete this topic [facility] Care Teams Residential Case Manager Relationship Specialty Start Date End Date None, Provider, PCP - General 03/15/20
--- OUTSIDE RECORDS SUMMARY | 2024-10-02 10:16 | XMS_ITS | Encounter Summary ---
Author Organization [facility] Address [address] [place] [address] Care Team Providers Care Joint Creaser Name Role Phone None, Provider Primary Care Provider Lindy powell Encounter Details Date Type Department Care Team (Late st Contact Info) Description 11/16/2020 [employer] Message Enc [facility] [address] [place] [address] Mya Carver, PREMA [address] [place] [address] Visit Follow Up Social History Tobacco Use [...] on filedocumented in this encounter Care Teams Joint Creaser Relationship Specialty Start Date End Date None, Provider, PCP - General 03/15/20 documented as of this encounter
[2024-10-02 11:00] LABS: Strep Group A RT-PCR NOT DETECTED (Negative)
--- NOTE | 2024-10-02 11:01 | ED_ITS ---
HPI - General Adult General Chief complaint: Unspecified Stated complaint: gum infection, pharyngitis Time Seen by Provider: 10/02/24 10:[address] [facility] narrative: 18-year-old otherwise healthy female presenting to the emergency department for evaluation of pharyngitis, sore throat, stomatitis. She was evaluated urgent care 2 days ago and received antibiotics including amoxicillin and discharged home. Patient states that she is having trouble swallowing and painful swallowing and knows that her mouth lesions are slightly worse. She did have a fever that responds well to anti-inflammatories. Denies any vomiting, abdominal pain, back pain, fever, chills. She endorses lack of appetite. No history of something similar in the past such as mono or strep throat. No difficulties breathing. Related Data Home Medications ?Medication ?Instructions ?Recorded ?Confirmed ?Last Taken ?Type methylphenidate HCl 27 mg 27 mg PO DAILY 01/10/24 Unknown History tablet,extended release 24 hr Allergies Allergy/AdvReac Type Severity Reaction Status Date / Time No Known Allergies Allergy Verified 10/02/24 07:44 Review of Systems 2 Review of Systems: As reviewed above in HPI [facility] Past Medical History Medical History (Updated 10/02/24 @ 13:10 by Rajinder Mcclellan MD) ADHD Social History Social History Smoking status: Never smoker Exam 2 Narrative: GENERAL: [Well-appearing, well-nourished, and in no acute distress.] HEAD: [Normocephalic, atraumatic.] EYES: [PERRLA and EOMI.] ENT: Shabazz shallow based ulcerations in the inferior inside of the mouth and in her lip as well as a single lesion under the base of the tongue. The bilateral tonsils are inflamed with some exudates and similar appearing ulcerations. Uvula is midline, no significant obstruction, tolerating secretions. There is tender lymphadenopathy in the inferior portion of the anterior neck, no overlying skin changes. NECK: Supple. CHEST: [Clear to auscultation. No respiratory distress.] HEART: [Regular rate and rhythm]. No murmur heard. [Normal peripheral pulses.] ABDOMEN: [Soft, nondistended], [nontender], [No rigidity or guarding] EXTREMITIES: Normal range of motion. [No edema.] SKIN: Warm, dry, no rash. NEURO: [No focal deficits]. Alert and oriented [x3.] PSYCH: [Normal mood and affect.] Course Vital Signs Vital signs: Vital Signs Temperature 38.1 C H 10/02/24 07:41 Pulse Rate 110 H 10/02/24 07:41 Respiratory Rate 15 10/02/24 07:41 Blood Pressure 130/85 10/02/24 07:41 Pulse Oximetry 100 10/02/24 07:41 Oxygen Delivery Room Air 10/02/24 07:41 Temperature 37.4 C 10/02/24 10:10 Pulse Rate 95 10/02/24 12:44 Respiratory Rate 15 10/02/24 12:44 Blood Pressure 107/59 L 10/02/24 12:44 Pulse Oximetry 100 10/02/24 12:44 Oxygen Delivery Room Air 10/02/24 07:41 Medical Decision Making MDM Narrative Medical decision making narrative: 18-year-old previously healthy female presenting to the emergency department for evaluation of sore throat and mouth lesions. Her examination shows Shabazz shallow based ulcerations in the inferior inside of the mouth and inner bottom lip as well as a single lesion under the base of the tongue. The bilateral tonsils are inflamed with some exudates and similar appearing ulcerations. Uvula is midline, no significant obstruction, tolerating secretions. There is tender lymphadenopathy in the inferior portion of the anterior neck, no overlying skin changes. Suspicion presently is for viral pharyngitis, viral stomatitis, bacterial pharyngitis such as strep throat. Viral panel was obtained including COVID, flu, RSV as well as mono. Strep throat swab was obtained. Basic laboratories drawn and she was given IV therapies including Toradol and Decadron for her pharyngitis symptoms. Patient has no known risk factors for immunocompromised state. Patient's workup was unremarkable. She has no leukocytosis or anemia. Mildly low platelets but still otherwise unremarkable. Electrolyte panel shows normal electrolytes, normal renal function and glucose. Patient's panels are negative including negative flu, COVID, RSV, mono and strep. Patient had improvement symptomatically after treatments and will be discharged home with a Medrol Dosepak and instructed continue taking her amoxicillin from urgent care. Patient likely has viral stomatitis and will be also given Magic mouthwash for symptom control until healed. She will have to follow-up with regular doctor. Medical Records Medical records reviewed: Yes I reviewed the external patient's medical records. Vital Signs Vital Signs: Vital Signs Temperature 38.1 C H 10/02/24 07:41 Pulse Rate 110 H 10/02/24 07:41 Respiratory Rate 15 10/02/24 07:41 Blood Pressure 130/85 10/02/24 07:41 Pulse Oximetry 100 10/02/24 07:41 Oxygen Delivery Room Air 10/02/24 07:41 Temperature 37.4 C 10/02/24 10:10 Pulse Rate 95 10/02/24 12:44 Respiratory Rate 15 10/02/24 12:44 Blood Pressure 107/59 L 10/02/24 12:44 Pulse Oximetry 100 10/02/24 12:44 Oxygen Delivery Room Air 10/02/24 07:41 Lab Data Lab results reviewed: Yes I reviewed the patient's lab results. 10/02/24 11:33 10/02/24 11:33 Labs: Lab Results 10/02/24 10/02/24 Range/Units 10:26 11:33 WBC 5.8 (4.5-10.0) K/mm3 RBC 4.63 (4.2-5.4) M/mm3 Hgb 12.8 (12.0-15.0) g/dL Hct 39.9 (37.0-47.0) % MCV 86.2 (80-100) fl MCH 27.6 (26-34) pg MCHC 32.1 (32-36) g/dl RDW 11.8 (11.5-14.5) % Plt Count 147 L (150-375) k/mm3 MPV 9.4 (7.4-10.4) fl Immature Gran % (Auto) 0.2 (0-0.5) % Neut % (Auto) 75.5 H (45.5-73.1) % Lymph % (Auto) 12.8 L (18.3-44.2) % Barron % (Auto) 11.3 H (2.6-8.5) % Eos % (Auto) 0.0 (0-4.4) % Baso % (Auto) 0.2 (0.2-1.2) % Lymph # (Auto) 0.74 L (0.9-3.2) K/mm3 Barron # (Auto) 0.7 H (0.1-0.6) K/mm3 Eos # (Auto) 0.0 (0-0.3) K/mm3 Baso # (Auto) 0.0 (0.0-0.1) K/mm3 Abs Immat Gran (auto) 0.01 (0.00-0.031) K/mm3 Absolute Neuts (auto) 4.4 (1.3-6.7) K/mm3 Absolute Nucleated RBC 0.000 (0.0-0.012) K/mm3 Nucleated RBC % 0.0 (0.0-0.2) % % Immature Plt Fraction 2.1 (0.9-11.2) % Sodium 138 (134-143) mmol/L Potassium 3.7 (3.4-5.0) mmol/L Chloride 101 (98-107) mmol/L Carbon Dioxide 25 (22-30) mmol/L Anion Gap 12 (4-12) mmol/L BUN 12 (8-21) mg/dL Creatinine 0.79 (0.7-1.0) mg/dL Estim Creat Clear Calc 97 ml/min Estimated GFR > 60 (59 - ) Glucose 92 (65-110) mg/dL Calcium 9.0 (8.9-10.7) mg/dL Monoscreen Negative (Negative) Influenza A (RT-PCR) Negative (Negative) Influenza B (RT-PCR) Negative (Negative) RSV (RT-PCR) Negative (Negative) SARS-CoV-2 RNA (RT-PCR) Negative (Negative) Group A Strep (PCR) Not detected (Negative) Discharge Plan Discharge Clinical Impression: Viral stomatitis, Acute viral pharyngitis Patient Disposition: Home Condition: Stable Instructions: Antibiotic Form, Gingivostomatitis (ED) Additional Instructions: All of your testing is negative for COVID, flu, RSV, strep throat, mononucleosis. Your symptoms are likely secondary to a benign viral etiology and we will treat this with a combination of anti-inflammatories and steroids. Continue taking the amoxicillin that you started at urgent care until completion. Follow-up with regular doctor. Return if there is any emergent concerns. Patient Language: Taiwanese Prescriptions: New Magic Mouthwash (Dr. Basurto) 120 mL suspension See Rx Instructions .ROUTE .COMPLEX Qty: 120 0RF Rx Instructions: mL orally ;diphenhydramine 12.5 mg/5 mL oral elixir 40 mL; Lidocaine Viscous 2 % mucosal solution 40 mL; Maalox 200 mg-200 mg-20 mg/5 mL oral suspension 40 mL; Per 120 mL methylprednisolone [Medrol (Abdifatah)] 4 mg tablets,dose pack See Rx Instructions .ROUTE .COMPLEX Qty: 21 0RF Rx Instructions: orally per package directions No Action methylphenidate HCl 27 mg tablet extended release 24hr 27 mg PO DAILY amoxicillin 875 mg tablet 875 mg PO Q12H 10 Days Qty: 20 0RF Follow-up/Referrals: Romie Santillan MD [Physician] - 1 Week (PCP) PHYSICIAN,[employer] OPERATOR [Primary Care Provider] - Time of Disposition: 13:11
[2024-10-02 11:11] LABS: Influenza A QL RT-PCR Negative (Negative); Influenza B QL RT-PCR Negative (Negative); RSV RNA, RT-PCR Negative (Negative); SARS-CoV-2 RNA PCR Negative (Negative)
[2024-10-02 11:32] VITALS: BP 108/65; PULSE 66; RESP 15; O2SAT 100
[2024-10-02 11:41] LABS: Basophils Percent Auto 0.2 % (0.2-1.2); Hematocrit 39.9 % (37.0-47.0); Hemoglobin 12.8 g/dL (12.0-15.0); Immature Granulocyte Absolute 0.01 K/mm3 (0.00-0.031); Immature Granulocyte Percent A 0.2 % (0-0.5); Immature Platelet Fraction Pct 2.1 % (0.9-11.2); Lymphocytes Absolute Auto 0.74 K/mm3 (0.9-3.2); Lymphocytes Percent Auto 12.8 % (18.3-44.2); Mean Corpuscular HGB Conc 32.1 g/dl (32-36); Mean Corpuscular Hemoglobin 27.6 pg (26-34); Mean Corpuscular Volume 86.2 fl (80-100); Mean Platelet Volume 9.4 fl (7.4-10.4); Monocytes Absolute Auto 0.7 K/mm3 (0.1-0.6); Monocytes Percent Auto 11.3 % (2.6-8.5); Neutrophils Absolute Auto 4.4 K/mm3 (1.3-6.7); Neutrophils Percent Auto 75.5 % (45.5-73.1); Platelet Count Result 147 k/mm3 (150-375); Red Blood Count 4.63 M/mm3 (4.2-5.4); Red Cell Distribution Width 11.8 % (11.5-14.5); White Blood Count 5.8 K/mm3 (4.5-10.0)
[2024-10-02] MEDS: KETOROLAC 15 MG/ML VIAL (*BKC) IV PUSH (11:46)
[2024-10-02] MEDS: dexAMETHasone SOD PHOS INJ 10 MG/ML 1 ML VIAL IV PUSH (11:47)
[2024-10-02 11:51] LABS: Anion Gap 12 mmol/L (4-12); Blood Urea Nitrogen 12 mg/dL (8-21); Carbon Dioxide 25 mmol/L (22-30); Chloride 101 mmol/L (98-107); Estimated CRCL calculation 97 ml/min; Estimated Glomerular Filt Rate > 60; Glucose 92 mg/dL (65-110); Potassium 3.7 mmol/L (3.4-5.0); Sodium 138 mmol/L (134-143)
[2024-10-02 12:08] LABS: Monoscreen Negative (Negative); Negative Monotest Control Negative (Negative); Positive Monotest Control Positive (Positive)
[2024-10-02 12:44] VITALS: BP 107/59; PULSE 95; RESP 15; O2SAT 100
[2024-10-02] MEDS: LIDOCAINE 2% VISC SOLN 30 ML, ALUMINUM/MAGNESIUM/SIMETH SUSP 30 ML, diphenhydrAMINE HCl... PO (12:44)
[2024-10-02 13:36] VITALS: BP 108/67; PULSE 87; RESP 16; TEMP 36.6; O2SAT 100
== END 2024-10-02 13:38 | disposition home or self-care (01) ==
PROVIDERS: Emergency Provider Student in an Organized Health Care Education/Training Program
DX: J02.9 Acute pharyngitis, unspecified (principal); K12.1 Other forms of stomatitis; Z20.822 Contact with and (suspected) exposure to COVID-19; F90.9 Attention-deficit hyperactivity disorder, unspecified type
CPT/HCPCS: 36415; 80048; 85025; 85055; 86308; 87637; 87651; 96374; 96375; 99284; A9270; J1100; J1885